=== PATIENT | female | born 1960 | race Caucasian/White ===

== ENCOUNTER 2020-05-30 00:53 | Inpatient (IN) | payer BC ==
[2020-05-30] MEDS ORDERED: Diltiazem 50 MG/10 ML SDV IVPUSH ONE ×2 (01:11→01:55)
--- NOTE | 2020-05-30 01:16 | EDM.PDOC ---
ED HPI GENERAL MEDICAL PROBLEM - General Chief Complaint: Cardiovascular Problem Stated Complaint: RAPID HEART BEAT, LT ARM PAIN Time Seen by Provider: 05/30/20 01:04 Source of Information: Reports: Patient History Limitations: Reports: No Limitations - History of Present Illness INITIAL COMMENTS - FREE TEXT/NARRATIVE: This is a 59-year-old female. She had onset early this morning with rapid heart rate. No shortness of breath no diaphoresis though she does state that her left arm feels pressure down into the elbow and also into the chest but no obvious crushing sensation or someone sitting on her chest. She says she has a history of atrial fibrillation but she takes Toprol though she does not know how much. She has not missed her medications. She was at a wedding today and did not have any alcohol and no excess caffeine. She is on no blood thinners and does not take a baby aspirin a day. She denies any other acute symptoms with no recent illnesses colds coughs fever or chills. 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 Denies: Edema Endocrine: Reports: No Symptoms GI/Abdominal: Reports: No Symptoms : Reports: No Symptoms Musculoskeletal: Reports: No Symptoms Skin: Reports: No Symptoms Neurological: Reports: No Symptoms Psychiatric: Reports: No Symptoms Hematologic/Lymphatic: Reports: No Symptoms ED EXAM, GENERAL - Physical Exam Exam: See Below Exam Limited By: No Limitations General Appearance: Alert, WD/WN, No Apparent Distress Eye Exam: Bilateral Eye: Normal Inspection Ears: Normal External Exam Nose: Normal Inspection Throat/Mouth: Normal Voice, No Airway Compromise Head: Normocephalic Neck: Supple Respiratory/Chest: No Respiratory Distress, Lungs Clear, Normal Breath Sounds Cardiovascular: No Murmur, Tachycardia, Irregularly Irregular GI/Abdominal: Soft, Non-Tender Back Exam: Full Range of Motion Extremities: Normal Inspection, Normal Range of Motion Neurological: Alert, Oriented Psychiatric: Normal Affect, Normal Mood Skin Exam: Warm, Dry Course - Vital Signs Last Recorded V/S: Last Vital Signs Temp 96.7 F L 05/30/20 01:00 Pulse 147 H 05/30/20 01:00 Resp 17 05/30/20 01:00 BP 168/121 H 05/30/20 01:00 Pulse Ox 95 05/30/20 01:00 - Orders/Labs/Meds Orders: Active Orders 24 hr Category Date Time Status Diltiazem [Cardizem] 100 mg Med 05/30/20 02:30 Active Sodium Chloride 0.9% [Normal Saline] 100 ml IV TITRATE Medication Orders Diltiazem HCl 100 mg/ Sodium (Chloride) 100 mls @ 5 mls/hr IV TITRATE GLORIA; Protocol Last Titration: 05/30/20 05:35 Dose: 12 mg/hr, 12 mls/hr Documented by: Titration: 05/30/20 04:10 Dose: 15 mg/hr, 15 mls/hr Documented by: Titration: 05/30/20 02:54 Dose: 10 mg/hr, 10 mls/hr Documented by: Admin: 05/30/20 02:27 Dose: 5 mg/hr, 5 mls/hr Documented by: HEATHER Labs: Laboratory Tests 05/30/20 05/30/20 Range/Units 01:05 01:05 WBC 9.79 (3.98-10.04) K/mm3 RBC 5.53 H (3.98-5.22) M/mm3 Hgb 17.0 H (11.2-15.7) gm/dl Hct 50.5 H (34.1-44.9) % MCV 91.3 (79.4-94.8) fl MCH 30.7 (25.6-32.2) pg MCHC 33.7 (32.2-35.5) g/dl RDW Std Deviation 45.4 (36.4-46.3) fL Plt Count 258 (182-369) K/mm3 MPV 11.3 (9.4-12.3) fl Neut % (Auto) 53.0 (34.0-71.1) % Lymph % (Auto) 32.8 (19.3-51.7) % Early % (Auto) 10.3 (4.7-12.5) % Eos % (Auto) 3.2 (0.7-5.8) Baso % (Auto) 0.4 (0.1-1.2) % Neut # (Auto) 5.19 (1.56-6.13) K/mm3 Lymph # (Auto) 3.21 (1.18-3.74) K/mm3 Early # (Auto) 1.01 H (0.24-0.36) K/mm3 Eos # (Auto) 0.31 (0.04-0.36) K/mm3 Baso # (Auto) 0.04 (0.01-0.08) K/mm3 Sodium 140 (136-145) mEq/L Potassium 3.2 L (3.5-5.1) mEq/L Chloride 101 (98-107) mEq/L Carbon Dioxide 26 (21-32) mEq/L Anion Gap 16.2 H (5-15) BUN 17 (7-18) mg/dL Creatinine 1.0 (0.55-1.02) mg/dL Est Cr Clr Drug Dosing 60.36 mL/min Estimated GFR (MDRD) 57 (>60) mL/min BUN/Creatinine Ratio 17.0 (14-18) Glucose 115 H (74-106) mg/dL Calcium 9.1 (8.5-10.1) mg/dL Magnesium 2.0 (1.8-2.4) mg/dl Total Bilirubin 0.5 (0.2-1.0) mg/dL AST 31 (15-37) U/L ALT 55 (14-59) U/L Alkaline Phosphatase 85 (46-116) U/L Troponin I < 0.017 (0.00-0.056) ng/mL Total Protein 8.6 H (6.4-8.2) g/dl Albumin 4.1 (3.4-5.0) g/dl Globulin 4.5 gm/dL Albumin/Globulin Ratio 0.9 L (1-2) Meds: Medications Generic Name Dose Route Start Last Admin Trade Name Jess PRN Reason Stop Dose Admin Diltiazem HCl 100 mg/ Sodium 100 mls @ 5 mls/hr 05/30/20 02:30 05/30/20 05:35 Chloride IV 12 mg/hr TITRATE GLORIA 12 mls/hr Titration Protocol 5 MG/HR Discontinued Medications Generic Name Dose Route Start Last Admin Trade Name Jess PRN Reason Stop Dose Admin Diltiazem HCl 20 mg 05/30/20 01:11 05/30/20 01:19 Cardizem IVPUSH 05/30/20 01:12 20 mg ONETIME ONE Administration Diltiazem HCl 20 mg 05/30/20 01:55 05/30/20 01:56 Cardizem IVPUSH 05/30/20 01:56 20 mg ONETIME ONE Administration Ibuprofen 400 mg 05/30/20 04:34 05/30/20 04:40 Motrin PO 05/30/20 04:35 400 mg ONETIME ONE Administration Potassium Bicarbonate 40 meq 05/30/20 02:23 05/30/20 02:39 Effer-K PO 05/30/20 02:24 40 meq ONETIME ONE Administration - Re-Assessments/Exams Free Text/Narrative Re-Assessment/Exam: 05/30/20 02:26 The patient keeps dropping into the 80s but then goes back into the 100s and 110s. Occasionally one is in the 80s I will see a P wave but it will not convert back. I given 2 doses of Cardizem 20 IV I will put her on a 5 mg drip at this time. I am hoping over the next hour on the drip that she will convert to normal sinus rhythm if not I will consider putting in observation bed by the hospitalist until she does convert. I also spoke to the patient about her potassium being slightly low I will give her some p.o. potassium at this time to bring her back up. 05/30/20 05:55 I have been sitting on the patient for the last 5 hours hoping that she would convert back to normal sinus rhythm. She did drop down into the 70s 80s with diltiazem drip at 15. But she has not converted. I spoke to Dr. Palomino and she will put her in the ICU for further evaluation and treatment. Did speak to the patient regarding this and she is okay with this. Departure - Departure Time of Disposition: 05:57 Disposition: Admitted As Inpatient 68 Condition: Fair Clinical Impression: Atrial fibrillation with rapid ventricular response, Hypokalemia Sepsis Event Note (ED) - Evaluation Sepsis Screening Result: No Definite Risk - Focused Exam Vital Signs: Vital Signs Temp Pulse Resp BP Pulse Ox 05/30/20 01:00 96.7 F L 147 H 17 168/121 H 95 ED Communication - ED Communication Date/Time Date: 05/30/20 Time Called: 05:57 - Discussed Case With (1) Discussed Case With (1): Admitting Provider Person/s Notified (1): Marleni Real (She will admit for further evaluation and treatment) - My Orders Last 24 Hours: My Active Orders 05/30/20 02:30 Diltiazem [Cardizem] 100 mg Sodium Chloride 0.9% [Normal Saline] 100 ml IV TITRATE - Assessment/Plan Last 24 Hours: My Active Orders 05/30/20 02:30 Diltiazem [Cardizem] 100 mg Sodium Chloride 0.9% [Normal Saline] 100 ml IV TITRATE
[2020-05-30] MEDS ORDERED: Potassium Bicarbonate/Cit Ac 20 MEQ Effervescent Tab PO ONE (02:23)
[2020-05-30] MEDS ORDERED: Diltiazem 100 MG in Sodium Chloride 0.9% 100 ML IV SCH (02:30)
[2020-05-30] MEDS ORDERED: Ibuprofen 400 MG Tab PO ONE (04:34)
--- NOTE | 2020-05-30 09:16 | PCM.HP.2 ---
H&P History of Present Illness - General Date of Service: 05/30/20 Admit Problem/Dx: Admission Diagnosis/Problem Admission Diagnosis/Problem Atrial fibrillation - History of Present Illness Initial Comments - Free Text/Narative: This is a 59-year-old female with past medical history of hypertension and "arrhythmia" who comes emergency department after being woken up with palpitations. As per patient she was in her usual state of health until yesterday when she went to bed couple of hours later she was awoken by a sensation of her heart racing. She denies any associated shortness of breath, chest pain, nausea, vomiting, diarrhea, abdominal pain, diarrhea, constipation, fevers, chills, headaches. Only associated symptom was left arm pain that went away before she came to the ED. As per patient this has never happened before. Left Arm Pain Score (Numeric/FACES): 4 - Related Data Allergies/Adverse Reactions: Allergies Allergy/AdvReac Type Severity Reaction Status Date / Time No Known Allergies Allergy Verified 05/30/20 17:20 Home Medications: Home Meds Aspirin [Aspirin EC] 81 mg PO DAILY 05/30/20 [History] Cholecalciferol (Vitamin D3) [Vitamin D3] 1,000 unit PO DAILY 05/30/20 [History] Losartan/Hydrochlorothiazide [Losartan-HCTZ 50-12.5 MG] 1 tab PO DAILY 05/30/20 [History] Metoprolol Succinate [Toprol XL] 25 mg PO DAILY 05/30/20 [History] Past Medical History HEENT History: Reports: Impaired Vision Other HEENT History: Wears glasses Cardiovascular History: Reports: Arrhythmia, Hypertension 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: - Infectious Disease History Infectious Disease History: Reports: Chicken Pox - Past Surgical History GI Surgical History: Reports: Cholecystectomy Female Surgical History: Reports: Section Social & Family History - Tobacco Use Smoking Status *Q: Never Smoker Second Hand Smoke Exposure: No - Caffeine Use Caffeine Use: Reports: None - Recreational Drug Use Recreational Drug Use: No H&P Review of Systems - Review of Systems: Review Of Systems: See Below General: Denies: Fever, Chills, Malaise, Weakness, Fatigue, Night Sweats, Diaphoresis, Decreased Appetite HEENT: Denies: Post Nasal Drip, Sinus Congestion, Sore Throat, Vertigo, Visual Changes Pulmonary: Denies: Shortness of Breath, Wheezing, Pleuritic Chest Pain, Cough, Sputum, Hemoptysis Cardiovascular: Reports: Palpitations. Denies: Chest Pain, Dyspnea on Exertion, Orthopnea, PND, Edema, Lightheadedness, Syncope, Claudication, Blood Pressure Problem Gastrointestinal: Denies: Abdominal Pain, Anorexia, Black Stool, Bloody Stool, Constipation, Diarrhea, Decreased Appetite, Difficulty Swallowing, Distension, Flatus, Hematemesis, Hematochezia, Melena, Nausea, Vomiting Genitourinary: Denies: Dysuria, Frequency, Burning, Pain, Urgency, Incontinence Musculoskeletal: Denies: Joint Pain, Joint Swelling, Muscle Pain, Muscle Stiffness Skin: Denies: Cyanosis, Jaundice, Mottled, Pallor, Diaphoresis Psychiatric: Denies: Depression, Mood Lability, Anxiety Neurological: Denies: Dizziness, Headache, Numbness Exam - Exam Exam: See Below - Vital Signs Vital Signs: Last Vital Signs Temp 98.8 F 05/30/20 07:00 Pulse 147 H 05/30/20 01:00 Resp 18 05/30/20 07:00 BP 126/88 05/30/20 07:00 Pulse Ox 95 05/30/20 07:00 Weight: 111.493 kg - Exam Quality Assessment: No: Supplemental Oxygen General: Alert, Oriented, Cooperative. No: Mild Distress, Moderate Distress HEENT: Conjunctiva Clear, EACs Clear, EOMI, Hearing Intact, Mucosa Moist & [place] Neck: Supple, Trachea Midline, +2 Carotid Pulse wo Bruit, Full Range of Motion. No: Lymphadenopathy Lungs: Clear to Auscultation, Normal Respiratory Effort. No: Decreased Breath Sounds, Crackles, Rales, Rhonchi, Rub, Stridor, Wheezing Cardiovascular: Regular Rate, Regular Rhythm. No: Systolic Murmur, Diastolic Murmur, Rubs, Gallop/S3, Gallop/S4 GI/Abdominal Exam: Normal Bowel Sounds, Soft, Non-Tender, No Organomegaly. No: Distended, Guarding, Rigid, Rebound Back Exam: Normal Inspection. No: CVA Tenderness (L), CVA Tenderness (R) Extremities: Normal Inspection, Normal Range of Motion, Non-Tender, No Pedal Edema, Normal Capillary Refill Peripheral Pulses: 2+: Radial (L), Radial (R) Skin: Warm, Dry, Intact - Patient Data Result Diagrams: 05/30/20 01:05 05/30/20 01:05 Sepsis Event Note - Evaluation Sepsis Screening Result: No Definite Risk - Problem List (1) Atrial fibrillation with rapid ventricular response SNOMED Code(s): 018153035894737 ICD Code: I48.91 - UNSPECIFIED ATRIAL FIBRILLATION Status: Acute Current Visit: Yes (2) Hypokalemia SNOMED Code(s): 22088423 ICD Code: E87.6 - HYPOKALEMIA Status: Acute Current Visit: Yes (3) Hypertension SNOMED Code(s): 76030178 ICD Code: I10 - ESSENTIAL (PRIMARY) HYPERTENSION Status: Acute Current Visit: Yes (4) Obesity, Class II, BMI 35-39.9 SNOMED Code(s): 895497657875314 ICD Code: E66.9 - OBESITY, UNSPECIFIED Status: Acute Current Visit: Yes Problem List Initiated/Reviewed/Updated: Yes Assessment/Plan Comment:: ASSESSMENT Comes into the emergency department after being woken up by new onset palpitations Denies any associated symptoms except for intermittent arm pain that went away before she came to the emergency department Vital signs on admission Blood pressure 168/121 (136), heart rate 147, respiratory rate 17, temp 96.7, pulse ox 95% on room air Labs on admission Chemistry: Glucose 150, sodium 140, potassium 3.2, chloride 101, CO2 26, GFR 57, calcium 9.1, magnesium 2.0 Hemoglobin 17 Troponin negative EKG Atrial fibrillation with rapid ventricular rate Responded temporarily to 2 diltiazem boluses in the emergency department Started on diltiazem drip and admitted to the ICU Rate controlled this morning Rate of 15-->Started on 90mg q6h Chads vascular score is 2 STOP BANG score of 5--> high risk of GEORGE Given 40 mg of oral potassium in the emergency department PLAN Atrial fibrillation with rapid ventricular response Transition to 90mg PO every 6 hours Echocardiogram ordered for tomorrow Start on Xarelto today Sleep study as an outpatient Hypertension Continue losartan hydrochlorothiazide Discontinue metoprolol PRN hydralazine Hypokalemia Extra 80 mg p.o. KCl today Obesity, Class II, BMI 35-39.9 High risk of GEORGE Dietary consult Outpatient sleep study PROPHYLAXIS DVTXarelto today GInot indicated CODE STATUS: FULL CODE DISPOSITION: Patient will remain admitted in the ICU to taper down diltiazem drip. Will need an echocardiogram tomorrow and will be started on Xarelto today. - Mortality Measure Prognosis:: Good
[2020-05-30] MEDS: Diltiazem IR 30 MG Tab PO SCH ×3 (09:57→22:03)
[2020-05-30] MEDS ORDERED: Diltiazem IR 60 MG Tab PO SCH (10:00)
[2020-05-30] MEDS ORDERED: Ondansetron 4 MG/2 ML SDV IV PRN (14:45)
[2020-05-30] MEDS: Rivaroxaban 10 MG Tab PO SCH (15:28)
[2020-05-30] MEDS: Acetaminophen 325 MG Tab PO PRN (15:39)
[2020-05-30] MEDS ORDERED: Potassium Chloride 20 MEQ Tab.ER PO ONE (18:26)
[2020-05-31] MEDS: Diltiazem IR 30 MG Tab PO SCH ×2 (05:09→10:22)
[2020-05-31] MEDS: Rivaroxaban 10 MG Tab PO SCH (10:15)
[2020-05-31] MEDS ORDERED: Metoprolol Succinate 50 MG Tab.ER PO SCH (11:00)
[2020-05-31] MEDS: Acetaminophen 325 MG Tab PO PRN (11:32)
--- NOTE | 2020-05-31 17:42 | PCM.DCSUM1 ---
Discharge Summary - Hospital Course HPI Initial Comments: This is a 59-year-old female with past medical history of hypertension and "arrhythmia" who comes emergency department after being woken up with palpitations. As per patient she was in her usual state of health until yesterday when she went to bed couple of hours later she was awoken by a sensation of her heart racing. She denies any associated shortness of breath, chest pain, nausea, vomiting, diarrhea, abdominal pain, diarrhea, constipation, fevers, chills, headaches. Only associated symptom was left arm pain that went away before she came to the ED. As per patient this has never happened before. ASSESSMENT Comes into the emergency department after being woken up by new onset palpitations Denies any associated symptoms except for intermittent arm pain that went away before she came to the emergency department Vital signs on admission Blood pressure 168/121 (136), heart rate 147, respiratory rate 17, temp 96.7, pulse ox 95% on room air Labs on admission Chemistry: Glucose 150, sodium 140, potassium 3.2, chloride 101, CO2 26, GFR 57, calcium 9.1, magnesium 2.0 Hemoglobin 17 Troponin negative EKG Atrial fibrillation with rapid ventricular rate Responded temporarily to 2 diltiazem boluses in the emergency department Started on diltiazem drip and admitted to the ICU Rate controlled this morning Rate of 15-->Started on 90mg q6h Chads vascular score is 2 STOP BANG score of 5--> high risk of GEORGE Given 40 mg of oral potassium in the emergency department PLAN Atrial fibrillation with rapid ventricular response Transition to 90mg PO every 6 hours Echocardiogram ordered for tomorrow Start on Xarelto today Sleep study as an outpatient Hypertension Continue losartan hydrochlorothiazide Discontinue metoprolol PRN hydralazine Hypokalemia Extra 80 mg p.o. KCl today Obesity, Class II, BMI 35-39.9 High risk of GEORGE Dietary consult Outpatient sleep study PROPHYLAXIS DVTXarelto today GInot indicated CODE STATUS: FULL CODE DISPOSITION: Patient will remain admitted in the ICU to taper down diltiazem drip. Will need an echocardiogram tomorrow and will be started on Xarelto today. Diagnosis: Stroke: No - Discharge Data Discharge Date: 05/31/20 Discharge Disposition: Home, Self-Care 01 Condition: Good - Referral to Home Health Primary Care Physician: Dom Borrero MD - Discharge Diagnosis/Problem(s) (1) Atrial fibrillation with rapid ventricular response SNOMED Code(s): 560194854694002 ICD Code: I48.91 - UNSPECIFIED ATRIAL FIBRILLATION Status: Acute Current Visit: Yes (2) Hypertension SNOMED Code(s): 87404088 ICD Code: I10 - ESSENTIAL (PRIMARY) HYPERTENSION Status: Acute Current Visit: Yes - Patient Summary/Data Consults: Consultations 05/30/20 14:45 Consult to Case Management/Pull Worker [CONS] Routine Hospital Course: Patient switched over to oral diltiazem. She converted to normal sinus rhythm. She was then switched from diltiazem to metoprolol succinate 50 mg daily which is 25 mg daily more than previous. Patient blood pressure was well controlled on this and her heart rate stayed in the 60s. Patient will be discharged home on the increased dose of metoprolol with instructions to return to the hospital if A. fib returns. - Patient Instructions Diet: Heart Healthy Diet Activity: As Tolerated Driving: May Drive Today Showering/Bathing: May Shower Other/Special Instructions: Follow-up with your primary care provider in the next week. Please get a blood pressure monitor and check your blood pressure at least twice a day until you are seen by your primary care provider. Check your pulse regularly. If your heart rate increases greater than 100 at rest call your provider or the ER. - Discharge Plan *PRESCRIPTION DRUG MONITORING PROGRAM REVIEWED*: No *COPY OF PRESCRIPTION DRUG MONITORING REPORT IN PATIENT DRAGAN: No Prescriptions/Med Rec: Metoprolol Succinate [Toprol XL 50mg] 50 mg PO DAILY #30 tab.er Rivaroxaban [Xarelto] 20 mg PO DAILY #30 tablet Home Medications: Home Meds Cholecalciferol (Vitamin D3) [Vitamin D3] 1,000 unit PO DAILY 05/30/20 [History] Metoprolol Succinate [Toprol XL 50mg] 50 mg PO DAILY #30 tab.er 05/31/20 [Rx] Rivaroxaban [Xarelto] 20 mg PO DAILY #0 tablet 05/31/20 [Rx] Rivaroxaban [Xarelto] 20 mg PO DAILY #30 tablet 05/31/20 [Rx] Oxygen Therapy Mode: Room Air - Discharge Summary/Plan Comment DC Time >30 min.: Yes Discharge Summary/Plan Comment: Discharged home in good condition. Follow-up with primary care provider. Echocardiogram was performed which results are not available at this time. - General Info Date of Service: 05/31/20 Admission Dx/Problem (Free Text: Admission Diagnosis/Problem Admission Diagnosis/Problem Atrial fibrillation Subjective Update: Patient is feeling well. He could shower and has had no further episodes of atrial fibrillation since when she converted yesterday morning. Appetite is g ood. Functional Status: Reports: Pain Controlled - Review of Systems General: Reports: No Symptoms HEENT: Reports: No Symptoms Pulmonary: Reports: No Symptoms Cardiovascular: Reports: No Symptoms Gastrointestinal: Reports: No Symptoms Musculoskeletal: Reports: No Symptoms Psychiatric: Reports: No Symptoms - Patient Data Vitals - Most Recent: Last Vital Signs Temp 97.8 F 05/31/20 08:00 Pulse 65 05/31/20 11:29 Resp 18 05/31/20 16:00 BP 117/69 05/31/20 16:00 Pulse Ox 96 05/31/20 16:00 Weight - Most Recent: 112.491 kg I&O - Last 24 hours: Intake & Output 05/31/20 05/31/20 05/31/20 06:59 14:59 22:59 Intake Total 600 120 620 Balance 600 120 620 Lab Results - Last 24 hrs: Laboratory Results - last 24 hr 05/31/20 05/31/20 Range/Units 04:58 04:58 WBC 7.83 (3.98-10.04) K/mm3 RBC 4.69 (3.98-5.22) M/mm3 Hgb 14.4 D (11.2-15.7) gm/dl Hct 44.2 (34.1-44.9) % MCV 94.2 (79.4-94.8) fl MCH 30.7 (25.6-32.2) pg MCHC 32.6 (32.2-35.5) g/dl RDW Std Deviation 46.7 H (36.4-46.3) fL Plt Count 209 (182-369) K/mm3 MPV 11.3 (9.4-12.3) fl Neut % (Auto) 53.8 (34.0-71.1) % Lymph % (Auto) 33.5 (19.3-51.7) % [place] % (Auto) 9.1 (4.7-12.5) % Eos % (Auto) 3.1 (0.7-5.8) Baso % (Auto) 0.4 (0.1-1.2) % Neut # (Auto) 4.22 (1.56-6.13) K/mm3 Lymph # (Auto) 2.62 (1.18-3.74) K/mm3 [place] # (Auto) 0.71 H (0.24-0.36) K/mm3 Eos # (Auto) 0.24 (0.04-0.36) K/mm3 Baso # (Auto) 0.03 (0.01-0.08) K/mm3 Sodium 143 (136-145) mEq/L Potassium 4.0 (3.5-5.1) mEq/L Chloride 109 H (98-107) mEq/L Carbon Dioxide 25 (21-32) mEq/L Anion Gap 13.0 (5-15) BUN 14 (7-18) mg/dL Creatinine 0.8 (0.55-1.02) mg/dL Est Cr Clr Drug Dosing 75.45 mL/min Estimated GFR (MDRD) > 60 (>60) mL/min BUN/Creatinine Ratio 17.5 (14-18) Glucose 114 H (74-106) mg/dL Calcium 8.3 L (8.5-10.1) mg/dL Phosphorus 2.9 (2.6-4.7) mg/dL Magnesium 2.0 (1.8-2.4) mg/dl Med Orders - Current: Current Medications Acetaminophen (Tylenol) 650 mg PO Q4H PRN PRN Reason: Pain (Mild 1-3)/fever Last Admin: 05/31/20 11:32 Dose: 650 mg Documented by: Diltiazem HCl 100 mg/ Sodium (Chloride) 100 mls @ 5 mls/hr IV TITRATE GLORIA; Protocol Last Titration: 05/30/20 09:58 Dose: 0 mg/hr, 0 mls/hr Documented by: Metoprolol Succinate (Toprol Xl) 50 mg PO DAILY [facility] Last Admin: 05/31/20 11:29 Dose: 50 mg Documented by: Ondansetron HCl (Zofran) 4 mg IV Q6H PRN PRN Reason: Nausea/Vomiting Rivaroxaban (Xarelto) 20 mg PO DAILY [facility] Last Admin: 09/14/20 10:15 Dose: 20 mg Documented by: Discontinued Medications Diltiazem HCl (Cardizem) 20 mg IVPUSH ONETIME ONE Stop: 05/30/20 01:12 Last Admin: 05/30/20 01:19 Dose: 20 mg Documented by: Diltiazem HCl (Cardizem) 20 mg IVPUSH ONETIME ONE Stop: 05/30/20 01:56 Last Admin: 05/30/20 01:56 Dose: 20 mg Documented by: Diltiazem HCl (Cardizem) 90 mg PO Q6H GLORIA Last Admin: 05/31/20 10:22 Dose: Not Given Documented by: Ibuprofen (Motrin) 400 mg PO ONETIME ONE Stop: 05/30/20 04:35 Last Admin: 05/30/20 04:40 Dose: 400 mg Documented by: Potassium Bicarbonate (Effer-K) 40 meq PO ONETIME ONE Stop: 05/30/20 02:24 Last Admin: 05/30/20 02:39 Dose: 40 meq Documented by: Potassium Chloride (Klor-Con M20) 80 meq PO ONETIME ONE Stop: 05/30/20 18:27 Last Admin: 05/30/20 19:45 Dose: 80 meq Documented by: - Exam General: Reports: Alert, Oriented HEENT: Reports: Pupils Equal, Mucous Membr. Moist/[employer] Neck: Reports: Supple Lungs: Reports: Clear to Auscultation, Normal Respiratory Effort Cardiovascular: Reports: Regular Rate, Regular Rhythm GI/Abdominal Exam: Normal Bowel Sounds, Soft, Non-Tender, No Organomegaly, No Distention, No Abnormal Bruit Skin: Reports: Warm, Dry, Intact Psy/Mental Status: Reports: Alert, Normal Affect, Normal Mood
== END 2020-05-31 18:00 | disposition home or self-care (01) | DRG 201 ==
LOC: JD.ED 00:53 → JD.ICU 06:17
PROVIDERS: ADMIT Family Medicine; ATTEND Family Medicine
DX: I48.91 Unspecified atrial fibrillation (principal); E87.6 Hypokalemia; E66.9 Obesity, unspecified; I10 Essential (primary) hypertension; Z20.828 Contact with and (suspected) exposure to other viral communicable diseases; Z79.82 Long term (current) use of aspirin; Z79.899 Other long term (current) drug therapy; Z90.49 Acquired absence of other specified parts of digestive tract
CPT/HCPCS: 36415; 80048; 80053; 83735; 84100; 84484; 85025; 93005; 93306; 96365; 96366; 96376; 99217; 99219; 99285; 99285-25; A9270-GY; J3490; J7050; U0002